=== PATIENT | male | born 1985 | race Caucasian/White ===

== ENCOUNTER 2021-10-02 19:49 | Emergency (ER) | payer OTHER, SELFPAY ==
[2021-10-02 20:18] VITALS: BP 153/80; PULSE 76; RESP 24; TEMP 36.4; O2SAT 99; BMI 27.0
== END 2021-10-03 03:05 | disposition left against medical advice (07) ==
PROVIDERS: Emergency Provider Emergency Medicine
DX: R11.0 Nausea (principal); R51.9 Headache, unspecified
CPT/HCPCS: 99281; 99282